=== PATIENT | female | born 1970 | race Caucasian/White ===

== ENCOUNTER 2017-01-05 18:01 | Emergency (ER) | payer MEDICAID ==
[~2017-01-05] VITALS: Ht 157.5 cm; Wt 89.5 kg
[~2017-01-05 18:01] MED LIST: ABILIFY5 MG PO; AMOXICILLIN500 MG PO; AVELOX400 MG OR; BACTRIM DS1 TAB PO; BUPROPION150 M3 PO; CIPROFLOXACN500 MG PO; CLONAZEP ODT1 MG OR; CODEINE/GUAIFEN1 SOL PO; COMBIVENT IN; COMBIVENT RESPIMAT IN; CYMBALTA30 MG PO; DOXYCYCL HYC100 MG PO; FLUTICASONE50 MCG; HYCODAN1 ML OR; IMITREX25 MG OR; IMITREX50 MG OR; IPRATROPIU0.5 MG/3 M IN; IVERMECTIN3 MG; KLONOPIN0.5 MG PO; KLONOPIN1 MG PO; LORTAB 7.57.5 MG PO; MEDDOSEPAK PO; MELOXICAM7.5 MG PO; METOPROLOL25 M1 OR; NO HOME MEDS; PERCOCET 5/325M1 TAB OR; PERCOCET 5/325M1 TAB PO; PREDNISONE10 MG PO; PRILOSEC20 MG/CAP PO; PRILOSEC40 MG PO; PROTONIX40 M2 PO; PROVENTIL HFA IN; PROZAC20 MG OR; PROZAC40 MG OR; RITALIN10 MG PO; RITALIN5 MG PO; TESSALON PER100 MG PO; TRAMADOL HCL50 MG PO; TRAZODONE100 MG PO; ULTRAM50 M1 PO; VENTOLIN HFA IN; WELLBUTRIN X1 PO; WELLBUTRIN150 M1 PO; XANAX0.5 MG PO; ZITHROMAX250 MG PO; ZOFRAN ODT4 MG PO; ZOLOFT100 MG PO; ZOLOFT50 MG PO
[2017-01-05 18:10] VITALS: BP 145/107
== END 2017-01-05 19:50 | disposition home or self-care (01) | DRG 563 ==
LOC: ED 18:01
PROC: 0HCQXZZ Extirpation of Matter from Finger Nail, External Approach (ICD-10-PCS; principal; 2017-01-05)
PROC: 2W3KX1Z Immobilization of Left Finger using Splint (ICD-10-PCS; 2017-01-05)
DX: S62.665A Nondisplaced fracture of distal phalanx of left ring finger, initial encounter for closed fracture (principal); S61.305A Unspecified open wound of left ring finger with damage to nail, initial encounter; W23.1XXA Caught, crushed, jammed, or pinched between stationary objects, initial encounter; Y92.009 Unspecified place in unspecified non-institutional (private) residence as the place of occurrence of the external cause

== ENCOUNTER 2023-01-20 20:33 | Emergency (ER) | payer OTHER ==
[2023-01-20] VITALS (8 sets, daily range): BP systolic 94–149; BP diastolic 59–94
[~2023-01-20] VITALS: Ht 157.5 cm; Wt 75.0 kg
[2023-01-20 23:03] LABS: BASO% 0.7 % (0-3); EOS% 2.4 % (0-8); HEMOGLOBIN 13.8 g/dl (12.0-16.0); IMMATURE GRANULOCYTES 0.1 % (0.0-5.0); LYMPH% 23.5 % (15-41); MEAN CELL VOLUME 88.3 fL CALC (80.0-100.0); MEAN CORPUSCULAR HGB 28.3 pG CALC (26.0-32.0); MONO% 6.6 % (2-13); NEUT# 5.48 thou/uL (2.00-7.15); NEUT% 66.7 % (42-76); RED BLOOD COUNT 4.88 mill/uL (4.20-5.60)
[2023-01-20 23:17] LABS: ALKALINE PHOSPHATASE 71 u/l (38-126); ANION GAP 13 (6-22 (CALC)); BUN 11 mg/dL (7-17); BUN/CREATININE RATIO 15 (12-20 (CALC)); CARBON DIOXIDE 25 mmol/l (22-30); CHLORIDE 103 mmol/l (95-108); CREATININE 0.7 mg/dL (0.5-1.0); GFR FOR AFR.AMER. > 60 ML/MIN (>=60 (CALC)); GFR OTHER RACES > 60 ML/MIN (>=60 (CALC)); POTASSIUM 4.1 mmol/l (3.5-5.1); SGOT/AST 34 u/l (14-36); SODIUM 137 mmol/l (137-146); TOTAL PROTEIN 7.8 g/dL (6.3-8.2)
[2023-01-20 23:21] LABS: ALBUMIN 4.7 g/dL (3.2-5.0); BILIRUBIN, TOTAL 0.6 mg/dL (0.02-1.3)
[2023-01-20 23:41] LABS: HEMATOCRIT 43.1 % (37.0-47.0)
[2023-01-21 01:45] LABS: URINE BILIRUBIN - DIPSTICK NEGATIVE (NEGATIVE); URINE COLOR YELLOW; URINE GLUCOSE - DIPSTICK NEGATIVE (NEGATIVE); URINE KETONE NEGATIVE (NEGATIVE); URINE LEUK ESTERASE TRACE (NEGATIVE); URINE PROTEIN - DIPSTICK NEGATIVE (NEG-TRACE); URINE UROBILINOGEN - DIPSTICK 0.2 E.U./dL (0.2)
[2023-01-21 01:47] LABS: URINE BLOOD DIPSTICK NEGATIVE (NEGATIVE); URINE NITRITE - DIPSTICK NEGATIVE (Negative)
[2023-01-21] MEDS ORDERED: BACLOFEN20 MG PO (02:10)
[2023-01-21 02:22] VITALS: BP 94/65
== END 2023-01-21 03:37 | disposition home or self-care (01) ==
LOC: ED 20:33
PROVIDERS: Emergency Medicine
DX: M54.50 Low back pain, unspecified (principal); R53.83 Other fatigue; Q79.61 Classical Ehlers-Danlos syndrome; Z95.0 Presence of cardiac pacemaker
CPT/HCPCS: J2060

== ENCOUNTER 2023-09-16 12:18 | Emergency (ER) | payer BC, OTHER ==
[~2023-09-16] VITALS: Ht 157.5 cm; Wt 70.7 kg
[2023-09-16] VITALS (8 sets, daily range): BP systolic 118–161; BP diastolic 75–99
[~2023-09-16 12:18] MED LIST changes: +BACLOFEN20 MG PO
[2023-09-16] MEDS ORDERED: FLORINEF0.1 MG PO (12:33)
[2023-09-16 13:23] LABS: BASO% 0.9 % (0-3); EOS% 4.2 % (0-8); HEMATOCRIT 42.7 % (37.0-47.0); HEMOGLOBIN 13.9 g/dl (12.0-16.0); IMMATURE GRANULOCYTES 0.4 % (0.0-5.0); LYMPH% 23.4 % (15-41); MEAN CELL VOLUME 87.5 fL CALC (80.0-100.0); MEAN CORPUSCULAR HGB 28.5 pG CALC (26.0-32.0); MEAN CORPUSCULAR HGB CONC 32.6 g/dL CAL (32.0-36.0); NEUT# 5.15 thou/uL (2.00-7.15); NEUT% 64.1 % (42-76); RED BLOOD COUNT 4.88 mill/uL (4.20-5.60); RED CELL DISTRI WIDTH 12.6 % (11.5-15.5)
[2023-09-16 13:37] LABS: ALBUMIN 4.5 g/dL (3.2-5.0); ALKALINE PHOSPHATASE 73 u/l (38-126); ANION GAP 18 (6-22 (CALC)); BILIRUBIN, TOTAL 0.8 mg/dL (0.02-1.3); BUN 12 mg/dL (7-17); BUN/CREATININE RATIO 16 (12-20 (CALC)); CARBON DIOXIDE 18 mmol/l (22-30); CHLORIDE 108 mmol/l (95-108); CREATININE 0.8 mg/dL (0.5-1.0); GFR FOR AFR.AMER. > 60 ML/MIN (>=60 (CALC)); GFR OTHER RACES > 60 ML/MIN (>=60 (CALC)); LIPASE 83 u/l (23-300); POTASSIUM 3.8 mmol/l (3.5-5.1); SGOT/AST 30 u/l (14-36); SODIUM 140 mmol/l (137-146); TOTAL PROTEIN 7.2 g/dL (6.3-8.2)
[2023-09-16 14:51] LABS: URINE BILIRUBIN - DIPSTICK Negative (NEGATIVE); URINE BLOOD DIPSTICK Negative (NEGATIVE); URINE GLUCOSE - DIPSTICK Negative (NEGATIVE); URINE KETONE Negative (NEGATIVE); URINE LEUK ESTERASE Negative (NEGATIVE); URINE NITRITE - DIPSTICK Negative (Negative); URINE PH 6.5 (4.5-8.0); URINE PROTEIN - DIPSTICK Negative (NEG-TRACE); URINE SPECIFIC GRAVITY 1.015; URINE UROBILINOGEN - DIPSTICK 0.2 E.U./dL (0.2)
[2023-09-16 14:52] LABS: URINE COLOR Yellow
[2023-09-16] MEDS ORDERED: PREDNISONE20 MG PO (15:28)
[2023-09-16] MEDS ORDERED: FIORICET PO (15:28)
[2023-09-16] MEDS ORDERED: METHOCARBAMOL500 MG PO (15:28)
== END 2023-09-16 15:59 | disposition home or self-care (01) | DRG 103 ==
LOC: ED 12:18
PROVIDERS: Nurse Practitioner
DX: G43.909 Migraine, unspecified, not intractable, without status migrainosus (principal); Q79.60 Ehlers-Danlos syndrome, unspecified; G93.0 Cerebral cysts; Z95.0 Presence of cardiac pacemaker

== ENCOUNTER 2023-10-31 14:36 | Observation (INO) | payer MEDICAID ==
[2023-10-31] VITALS (14 sets, daily range): BP systolic 134–184; BP diastolic 79–116
[~2023-10-31] VITALS: Ht 157.5 cm; Wt 70.4 kg
[~2023-10-31 14:36] MED LIST changes: +FIORICET PO; +FLORINEF0.1 MG PO; +METHOCARBAMOL500 MG PO; +PREDNISONE20 MG PO
[2023-10-31] MEDS ORDERED: ASPIRIN 81 MG/TAB PO ONE (14:45)
[2023-10-31 14:59] LABS: BASO% 0.8 % (0-3); HEMATOCRIT 42.4 % (37.0-47.0); HEMOGLOBIN 13.9 g/dl (12.0-16.0); IMMATURE GRANULOCYTES 0.1 % (0.0-5.0); LYMPH% 24.5 % (15-41); MEAN CELL VOLUME 86.5 fL CALC (80.0-100.0); MEAN CORPUSCULAR HGB 28.4 pG CALC (26.0-32.0); MEAN CORPUSCULAR HGB CONC 32.8 g/dL CAL (32.0-36.0); MONO% 6.1 % (2-13); NEUT# 4.94 thou/uL (2.00-7.15); NEUT% 66.5 % (42-76); RED BLOOD COUNT 4.9 mill/uL (4.20-5.60); RED CELL DISTRI WIDTH 12.5 % (11.5-15.5)
[2023-10-31] MEDS ORDERED: NITROGLYCERIN 0.4 MG/TAB SL ONE (15:00)
[2023-10-31 15:15] LABS: ALBUMIN 4.8 g/dL (3.2-5.0); ALKALINE PHOSPHATASE 62 u/l (38-126); ANION GAP 13 (6-22 (CALC)); BILIRUBIN, TOTAL 0.8 mg/dL (0.02-1.3); BUN 9 mg/dL (7-17); BUN/CREATININE RATIO 13 (12-20 (CALC)); CHLORIDE 105 mmol/l (95-108); CREATININE 0.7 mg/dL (0.5-1.0); GFR FOR AFR.AMER. > 60 ML/MIN (>=60 (CALC)); GFR OTHER RACES > 60 ML/MIN (>=60 (CALC)); POTASSIUM 3.6 mmol/l (3.5-5.1); SGOT/AST 31 u/l (14-36); SODIUM 138 mmol/l (137-146); TOTAL PROTEIN 7.7 g/dL (6.3-8.2)
[2023-10-31 15:17] LABS: CARBON DIOXIDE 24 mmol/l (22-30)
[2023-10-31] MEDS ORDERED: Zaleplon 5 MG/CAP PO PRN (18:00)
[2023-10-31] MEDS ORDERED: ACETAMINOPHEN 325 MG/TAB PO PRN (18:00)
[2023-10-31] MEDS ORDERED: MAGNESIUM HYDROXIDE 30 ML UDC PO PRN (18:00)
[2023-10-31] MEDS ORDERED: SODIUM CHLORIDE 0.9% 1,000 ML IV PRN (18:00)
[2023-10-31] MEDS ORDERED: hydrALAZINE HCL 20 MG/ML VIAL(1 ML) IV PRN (18:05)
[2023-10-31] MEDS ORDERED: NITROGLYCERIN 0.4 MG/TAB SL PRN (18:05)
[2023-10-31] MEDS ORDERED: MORPHINE SULFATE 4 MG/ML VIAL IV PRN (18:05)
[2023-10-31] MEDS ORDERED: ALLERGY RE50 MCG/ACT (18:07)
[2023-10-31] MEDS ORDERED: BACLOFEN 10 MG/TAB PO PRN (18:15)
[2023-10-31] MEDS ORDERED: IMIPRAMINE HCL25 MG PO (18:20)
[2023-10-31] MEDS ORDERED: BACLOFEN20 MG PO (18:22)
[2023-10-31] MEDS ORDERED: METOPROLOL TARTRATE 25 MG/TAB PO SCH (21:00)
[2023-10-31] MEDS ORDERED: ENOXAPARIN SODIUM 40 MG/0.4 ML SYR SC SCH (21:00)
[2023-11-01 00:37] VITALS: BP 94/60
[2023-11-01 04:23] VITALS: BP 110/71
[2023-11-01 06:45] LABS: BASO% 0.8 % (0-3); EOS% 4.6 % (0-8); HEMATOCRIT 40.3 % (37.0-47.0); IMMATURE GRANULOCYTES 0.4 % (0.0-5.0); LYMPH% 28.3 % (15-41); MEAN CELL VOLUME 87.6 fL CALC (80.0-100.0); MEAN CORPUSCULAR HGB 28.3 pG CALC (26.0-32.0); MEAN CORPUSCULAR HGB CONC 32.3 g/dL CAL (32.0-36.0); MONO% 10.1 % (2-13); NEUT# 3.96 thou/uL (2.00-7.15); NEUT% 55.8 % (42-76); RED BLOOD COUNT 4.6 mill/uL (4.20-5.60); RED CELL DISTRI WIDTH 12.5 % (11.5-15.5)
[2023-11-01 07:24] LABS: ALBUMIN 4.1 g/dL (3.2-5.0); ALKALINE PHOSPHATASE 56 u/l (38-126); ANION GAP 11 (6-22 (CALC)); BILIRUBIN, TOTAL 0.6 mg/dL (0.02-1.3); BUN 11 mg/dL (7-17); BUN/CREATININE RATIO 16 (12-20 (CALC)); CALCULATED LDLCHOLESTEROL 140 mg/dL (62-129 (CALC)); CARBON DIOXIDE 25 mmol/l (22-30); CHLORIDE 107 mmol/l (95-108); CHOLESTEROL HDL RATIO 4.1 (<4.4 (CALC)); CREATININE 0.7 mg/dL (0.5-1.0); GFR FOR AFR.AMER. > 60 ML/MIN (>=60 (CALC)); GFR OTHER RACES > 60 ML/MIN (>=60 (CALC)); HDL CHOLESTEROL 51 mg/dL (39.0-59.0); MAGNESIUM 2.2 mg/dL (1.6-2.3); SGOT/AST 23 u/l (14-36); SODIUM 138 mmol/l (137-146); TOTAL CHOLESTEROL 209 mg/dl (0-199); TOTAL PROTEIN 6.3 g/dL (6.3-8.2); TOTAL TRIGLYCERIDES 91 mg/dl (0-149); VLDL CHOLESTROL 18 mg/dl (2-49 (CALC))
[2023-11-01 07:38] VITALS: BP 132/78
[2023-11-01] MEDS ORDERED: ASPIRIN 81 MG/TAB PO SCH (09:00)
[2023-11-01] MEDS ORDERED: FLUDROCORTISONE ACETATE PO SCH (09:00)
[2023-11-01] MEDS ORDERED: FLUTICASONE PROPIONATE (Nasal) 50MCG/SPRAY INH SCH (09:00)
[2023-11-01] MEDS ORDERED: BACLOFEN 10 MG/TAB PO PRN (09:00)
== END 2023-11-01 14:24 | disposition home or self-care (01) ==
LOC: ED 14:36 → ED-I 17:35 → ED 17:47 → ED-I 17:48 → MS2 19:34
PROVIDERS: Family Medicine; ADMIT Student in an Organized Health Care Education/Training Program; ATTEND Student in an Organized Health Care Education/Training Program
DX: R07.89 Other chest pain (principal); Q79.61 Classical Ehlers-Danlos syndrome; G90.3 Multi-system degeneration of the autonomic nervous system; F43.10 Post-traumatic stress disorder, unspecified; J45.909 Unspecified asthma, uncomplicated; F32.A Depression, unspecified; Z95.0 Presence of cardiac pacemaker; Z77.22 Contact with and (suspected) exposure to environmental tobacco smoke (acute) (chronic)
CPT/HCPCS: G0378; J1650

== ENCOUNTER 2024-10-01 02:45 | Emergency (ER) | payer MEDICAID ==
[~2024-10-01] VITALS: Ht 157.5 cm; Wt 72.6 kg
[~2024-10-01 02:45] MED LIST changes: +ALLERGY RE50 MCG/ACT; +IMIPRAMINE HCL25 MG PO
[2024-10-01] MEDS ORDERED: Pantoprazole Sodium 40 MG VIAL (Protonix) IV STA (03:17)
[2024-10-01] MEDS ORDERED: HYDROmorphone HCL 2 MG/AMP IV STA (03:17)
[2024-10-01] MEDS ORDERED: SODIUM CHLORIDE 0.9% 1,000 ML IV STA ×2 (03:17→05:29)
[2024-10-01] MEDS ORDERED: DIATRIZOATE MEGLUMINE & SODIUM 30 ML/BTL PO ONE (03:20)
[2024-10-01] MEDS ORDERED: KETOROLAC TROMETHAMINE 30 MG/ML SDV IV ONE (03:20)
[2024-10-01] MEDS ORDERED: PROMETHAZINE HCL 25 MG/ML AMP IV ONE (03:20)
[2024-10-01 03:40] LABS: BASO% 0.5 % (0-3); EOS% 1.8 % (0-8); HEMATOCRIT 39.7 % (37.0-47.0); HEMOGLOBIN 12.8 g/dl (12.0-16.0); IMMATURE GRANULOCYTES 0.2 % (0.0-5.0); LYMPH% 12.3 % (15-41); MEAN CELL VOLUME 90.4 fL CALC (80.0-100.0); MEAN CORPUSCULAR HGB 29.2 pG CALC (26.0-32.0); MEAN CORPUSCULAR HGB CONC 32.2 g/dL CAL (32.0-36.0); MONO% 6.5 % (2-13); NEUT# 10.14 thou/uL (2.00-7.15); NEUT% 78.7 % (42-76); RED BLOOD COUNT 4.39 mill/uL (4.20-5.60); RED CELL DISTRI WIDTH 13.1 % (11.5-15.5)
[2024-10-01 03:49] LABS: ALBUMIN 4.2 g/dL (3.2-5.0); CREATININE 0.9 mg/dL (0.5-1.0); POTASSIUM 4.1 mmol/l (3.5-5.1); TOTAL PROTEIN 6.8 g/dL (6.3-8.2)
[2024-10-01 03:50] LABS: BILIRUBIN, TOTAL 0.6 mg/dL (0.02-1.3)
[2024-10-01 06:45] LABS: URINE BILIRUBIN - DIPSTICK Negative (NEGATIVE); URINE BLOOD DIPSTICK Negative (NEGATIVE); URINE GLUCOSE - DIPSTICK Negative (NEGATIVE); URINE KETONE Negative (NEGATIVE); URINE LEUK ESTERASE Negative (NEGATIVE); URINE NITRITE - DIPSTICK Negative (Negative); URINE PH 5.5 (4.5-8.0); URINE PROTEIN - DIPSTICK Negative (NEG-TRACE); URINE UROBILINOGEN - DIPSTICK 0.2 E.U./dL (0.2)
[2024-10-01 06:49] LABS: URINE COLOR Yellow
[2024-10-01] MEDS ORDERED: PROMETHAZINE HY25 M1 PO (06:55)
[2024-10-01] MEDS ORDERED: DICYCLOMINE HYD10 MG PO (06:55)
[2024-10-01 07:14] VITALS: BP 124/91
[2024-10-01] MEDS ORDERED: MEDICAL MARIJUANA (21:38)
[2024-10-01] MEDS ORDERED: BACLOFEN10 MG PO (21:38)
[2024-10-02] MEDS ORDERED: ZITHROMAX TRI-500 MG PO (00:12)
== END 2024-10-01 07:15 | disposition home or self-care (01) ==
LOC: ED 02:45
PROVIDERS: Family Medicine
DX: A08.4 Viral intestinal infection, unspecified (principal); Q79.60 Ehlers-Danlos syndrome, unspecified; Z95.0 Presence of cardiac pacemaker; I49.5 Sick sinus syndrome
CPT/HCPCS: J1171; J2470; J2550; Q9967

== ENCOUNTER 2024-10-01 20:33 | Emergency (ER) | payer MEDICAID ==
[~2024-10-01] VITALS: Ht 157.5 cm; Wt 72.0 kg
[~2024-10-01 20:33] MED LIST changes: +DICYCLOMINE HYD10 MG PO; +PROMETHAZINE HY25 M1 PO
[2024-10-01] MEDS ORDERED: SODIUM CHLORIDE 0.9% 1,000 ML IV STA (21:25)
[2024-10-01] MEDS ORDERED: DICYCLOMINE HCL 10 MG/CAP PO ONE (21:30)
[2024-10-01] MEDS ORDERED: KETOROLAC TROMETHAMINE 30 MG/ML SDV IV ONE (21:30)
[2024-10-01] MEDS ORDERED: BACLOFEN10 MG PO (21:38)
[2024-10-01] MEDS ORDERED: MEDICAL MARIJUANA (21:38)
[2024-10-01 22:32] LABS: BASO% 0.3 % (0-3); EOS% 1.1 % (0-8); HEMATOCRIT 39.7 % (37.0-47.0); HEMOGLOBIN 12.9 g/dl (12.0-16.0); IMMATURE GRANULOCYTES 0.1 % (0.0-5.0); LYMPH% 15.8 % (15-41); MEAN CELL VOLUME 87.6 fL CALC (80.0-100.0); MEAN CORPUSCULAR HGB 28.5 pG CALC (26.0-32.0); MEAN CORPUSCULAR HGB CONC 32.5 g/dL CAL (32.0-36.0); MONO% 5.2 % (2-13); NEUT# 8.91 thou/uL (2.00-7.15); NEUT% 77.5 % (42-76); RED BLOOD COUNT 4.53 mill/uL (4.20-5.60)
[2024-10-01 22:43] LABS: ALBUMIN 4.4 g/dL (3.2-5.0); CREATININE 0.8 mg/dL (0.5-1.0); POTASSIUM 4.2 mmol/l (3.5-5.1); TOTAL PROTEIN 7.2 g/dL (6.3-8.2)
[2024-10-02] MEDS ORDERED: AZITHROMYCIN 250 MG/TAB PO ONE (00:10)
[2024-10-02] MEDS ORDERED: ZITHROMAX TRI-500 MG PO (00:12)
[2024-10-02 00:38] VITALS: BP 112/78
[2024-10-02 00:43] VITALS: BP 112/78
== END 2024-10-02 00:43 | disposition home or self-care (01) ==
LOC: ED 20:33
PROVIDERS: Family Medicine
DX: K52.9 Noninfective gastroenteritis and colitis, unspecified (principal); Q79.60 Ehlers-Danlos syndrome, unspecified; I49.5 Sick sinus syndrome; Z95.0 Presence of cardiac pacemaker